=== PATIENT | male | born 1980 | race Hispanic/Latino ===

== ENCOUNTER → 2023-07-07 08:02 | Outpatient (REF) | payer OTHER, SELFPAY ==
[2023-07-07 09:19] LABS: ALT (SGPT) 53 U/L (0-50); AST (SGOT) 45 U/L (17-59); Albumin 4.6 g/dl (3.5-5.0); Alkaline Phosphatase 89 U/L (38-126); Blood Urea Nitrogen 16 mg/dl (9-20); Calcium 9.4 mg/dl (8.4-10.2); Carbon Dioxide 28 mmol/L (22-30); Chloride 103 mmol/L (98-107); Glucose 99 mg/dl (70-99); Sodium 137 mmol/L (135-145); Total Bilirubin 0.9 mg/dl (0.2-1.3); Total Protein 7.6 g/dl (6.3-8.2); eGFR > 60.00
== END ==
LOC: CLINIC 08:02
PROVIDERS: ATTENDING PHYSICIAN Nurse Practitioner Acute Care
DX: I10 Essential (primary) hypertension (principal)
CPT/HCPCS: 36415; 80053